=== PATIENT | female | born 1985 | race Caucasian/White ===

== ENCOUNTER 2019-10-19 13:17 | Emergency (ER) | payer MEDICARE, OTHER ==
[~2019-10-19] VITALS: Ht 160 cm; Wt 94.6 kg
[2019-10-19] MEDS ORDERED: TACR1CAP3 PO (13:36)
[2019-10-19] MEDS ORDERED: LEVO50TA5 PO (13:39)
[2019-10-19] MEDS ORDERED: PRED5PAK PO (13:39)
[2019-10-19] MEDS ORDERED: AZAT50TA2 PO (13:39)
[2019-10-19] MEDS ORDERED: MAGN1CAP PO (13:44)
[2019-10-19] MEDS ORDERED: OMEG1CAP16 PO (13:44)
[2019-10-19] MEDS ORDERED: CALC1TAB63 PO (13:44)
[2019-10-19] MEDS ORDERED: BIOT5TAB3 PO (13:44)
[2019-10-19] MEDS ORDERED: SM LTAB5 PO (13:44)
[2019-10-19] MEDS ORDERED: VITA1CAP25 PO (13:44)
[2019-10-19] MEDS ORDERED: PANT40TA3 PO (13:44)
[2019-10-19] MEDS ORDERED: MULTCAP PO (13:44)
[2019-10-19] MEDS ORDERED: RANI1TAB38 PO (13:44)
[2019-10-19] MEDS ORDERED: B-1225002 SL (13:44)
[2019-10-19 14:35] LABS: BASO % 1.1 % (0.0-1.0); EOS # 0.2 10^3/uL (0.0-0.5); EOS % 4.7 % (0.0-3.0); HEMATOCRIT 34.3 % (36.0-47.0); LYMPH # 0.5 10^3/uL (1.5-5.0); LYMPH % 14.3 % (24.0-44.0); MEAN CORPUSCULAR HEMOGLOBIN 34.5 pg (27.0-33.0); MEAN CORPUSCULAR VOLUME 98.6 fl (80.0-96.0); MONO # 0.3 10^3/uL (0.0-0.8); MONO % 8.2 % (0.0-5.0); NEUTROPHILS # 2.6 10^3/uL (1.5-8.5); NEUTROPHILS % 71.2 % (36.0-66.0); RED BLOOD COUNT 3.48 10^6/uL (4.00-5.40); WHITE BLOOD COUNT 3.6 10^3/uL (4.0-10.0)
[2019-10-19 15:07] LABS: FREE T4 0.98 NG/DL (0.76-1.46)
[2019-10-19 15:25] LABS: PLATELET COUNT, AUTOMATED 54 10^3/uL (150-450)
--- NOTE | 2019-10-19 16:48 | REP ---
PELVIC ULTRASOUND: Real-time sonographic evaluation of the pelvis was performed utilizing transabdominal and endovaginal technique. The bladder measures 1.4 x 4.7 x 5.0 cm. The uterus measures 7.7 x 3.5 x 4.5 cm. Endometrial thickness is 6 mm. Ovaries are normal in size and echotexture, right ovary measuring 3.6 x 2.2 x 2.2 cm and left ovary 3.0 x 2.0 x 2.6 cm. There is no adnexal mass. There is no torsion of either ovary with duplex Doppler evaluation. Small amount of free fluid is seen. IMPRESSION: Small amount of free fluid. Otherwise negative pelvic ultrasound. No mass or torsion. Electronically Signed by Dada Barlow MD 10/20/2019 03:57 P
[2019-10-19 16:51] LABS: BLOOD UREA NITROGEN 10 MG/DL (7-18); CALCIUM LEVEL 8.4 MG/DL (8.5-10.1); CARBON DIOXIDE LEVEL 29 MEQ/L (21-32); CHLORIDE LEVEL 110 MEQ/L (98-107); CREATININE FOR GFR 0.63 MG/DL (0.55-1.30); GLOMERULAR FILTRATION RATE > 60.0 (>60); GLUCOSE, FASTING 98 MG/DL (70-100); HCG, SERUM QUANTITATIVE < 1.0 MIU/ML; POTASSIUM SERUM 3.8 MEQ/L (3.5-5.1); SODIUM LEVEL 143 MEQ/L (136-145)
[2019-10-19] MEDS ORDERED: ISOVUE-370 76% 100ML VIAL (Q9967) As Ordered ONE (17:38)
--- NOTE | 2019-10-19 18:33 | REPVR ---
PROCEDURE INFORMATION: Exam: CT Abdomen And Pelvis With Contrast Exam date and time: 10/19/2019 5:15 PM Age: 34 years old Clinical history: Abdominal pain; Additional info: Lower abd pain TECHNIQUE: Imaging protocol: Computed tomography of the abdomen and pelvis with intravenous contrast. Radiation optimization: All CT scans at this facility use at least one of these dose optimization techniques: automated exposure control; mA and/or kV adjustment per patient size (includes targeted exams where dose is matched to clinical indication); or iterative reconstruction. Contrast material: ISOVUE 370; Contrast volume: 100 ml; Contrast route: IV; COMPARISON: US PELVIC NON-OB COMPLETE 2019-10-19 14:21 FINDINGS: Liver: Partial hepatectomy for liver transplant, correlate with history. Gallbladder and bile ducts: Pneumobilia. Cholecystectomy. Pancreas: Normal. No ductal dilation. Spleen: Severe splenomegaly. Adrenals: Normal. No mass. Kidneys and ureters: Normal. No hydronephrosis. Stomach and bowel: Unremarkable. No obstruction. No mucosal thickening. Appendix: No evidence of appendicitis. Intraperitoneal space: Small amount of free fluid. Vasculature: Bulky splenorenal varices. Question small amount of pulmonary venous thrombus on series 201 image 43 a. Engorged inferior vena cava. Lymph nodes: Unremarkable. No enlarged lymph nodes. Bladder: Unremarkable as visualized. Reproductive: Unremarkable as visualized. Bones/joints: Unremarkable. No acute fracture. Soft tissues: Ill-defined soft tissue or edema around the main portal vein, and in the shani hepatis. Laparotomy scar. Supraumbilical small area of fluid within the subcutaneous fat measures 3.1 cm and is most likely a small hematoma. IMPRESSION: 1. Severe splenomegaly. 2. Partial hepatectomy for liver transplant, correlate with history. 3. Pneumobilia. 4. Small amount of free fluid. 5. Bulky splenorenal varices. 6. Ill-defined soft tissue or edema around the main portal vein, and in the shani hepatis. 7. Question small amount of pulmonary venous thrombus on series 201 image 43 a. 8. Supraumbilical small area of fluid within the subcutaneous fat measures 3.1 cm and is most likely a small hematoma. Electronically signed by: Martinez Gonzalez On 10/19/2019 18:32:40 PM
[2019-10-19 19:20] LABS: ALT/SGPT 120 U/L (12-78); BILIRUBIN,DIRECT 0.7 MG/DL (0.0-0.2); BILIRUBIN,TOTAL 1.8 MG/DL (0.2-1.0)
[2019-10-19] MEDS ORDERED: ACETAMINOPHEN 325 MG TAB PO ONE (20:15)
[2019-10-19] MEDS ORDERED: MORPHINE 4 MG/ML 1ML VIAL/SYRINGE (J2270) IV ONE (22:30)
[2019-10-19 23:32] VITALS: BP 168/102
== END 2019-10-19 23:33 | disposition short-term general hospital (02) ==
LOC: M ED 13:17
DX: R94.5 Abnormal results of liver function studies (principal); R10.30 Lower abdominal pain, unspecified; Z94.4 Liver transplant status; E03.9 Hypothyroidism, unspecified; R56.9 Unspecified convulsions; G43.909 Migraine, unspecified, not intractable, without status migrainosus; Z79.899 Other long term (current) drug therapy
CPT/HCPCS: 36415; 74177; 76830; 76856; 80047; 80048; 80076; 81001; 84439; 84443; 84702; 85025; 85049; 85055; 87086; 93976; 96374; 99284; J2270; Q9967

== ENCOUNTER → 2020-09-13 | Outpatient (CLI) | payer OTHER ==
[~2020-09-13] MED LIST: AZAT50TA2 PO; B-1225002 SL; BIOT5TAB3 PO; CALC1TAB63 PO; LEVO50TA5 PO; MAGN1CAP PO; MULTCAP PO; OMEG1CAP16 PO; PANT40TA29 PO; PRED5PAK PO; RANI1TAB38 PO; SM LTAB5 PO; TACR1CAP3 PO; VITA1CAP25 PO
--- NOTE | 2020-09-14 04:28 | REP ---
INDICATION: LIVER REPLACED BY TRANSPLANT COMPARISON: None TECHNIQUE: Real time B-mode musa scale ultrasound examination using curved array transducer followed by Doppler evaluation of the hepatic vasculature.. FINDINGS: Within the anterior midline subcutaneous tissue, there is a 4.6 x 2.5 x 5.2 cm anechoic cystic appearing fluid collection which may reflect small seroma related to prior surgery. The liver is essentially normal in contour, size, and echogenicity without evidence for focal hepatic lesion. The main portal vein measures 6.2 mm in diameter. Doppler interrogation demonstrates slow flow through the main portal vein at 14.4 cm/sec with findings to suggest thrombosed posterior right portal vein. The anterior right and left portal veins demonstrate normal flow direction with velocities 13.5 cm/sec and 10.9 cm/sec, respectively. Evidence for prior cholecystectomy with pneumobilia limiting evaluation of the biliary system including common bile duct. The spleen is enlarged and measures 25.0 x 8.9 x 21.2 cm (splenic index 4717), but without focal splenic lesion identified. Doppler interrogation demonstrates normal flow direction, wave pattern and velocity to the splenic vein at the splenic hilum at 32 cm/sec. Multiple varicosities are identified along the path of the splenic vein to portal vein confluence and may reflect portosystemic shunting related to prior portal vein thrombosis and/or hypertension. Bilateral kidneys are normal in size, reniform shape and echogenicity without hydronephrosis. Right kidney measures 10.6 x 5.1 x 7.6 cm. Left kidney measures 11.3 x 5.7 x 4.4 cm. No ascites identified. IMPRESSION: 1. Liver is relatively normal in appearance. 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 2. Varicosities surrounding the course of the splenic vein towards the confluence the portal vein which may reflect changes related to prior portal vein thrombosis or portal vein hypertension as suggested by the associated splenomegaly. Doppler interrogation demonstrates otherwise normal wave patterns and flow direction to the patent portal veins and splenic vein at the hilum. 3. Small anechoic well-circumscribed fluid collection in the subcutaneous tissues midline which may reflect a small seroma. <Electronically signed by Akshat Wallace > 09/14/20 0424
== END ==
LOC: M RAD 09:25
PROVIDERS: ATTEND Nurse Practitioner Family
DX: I81 Portal vein thrombosis (principal); Z94.4 Liver transplant status